=== PATIENT | male | born 1995 | race Caucasian/White ===

== ENCOUNTER 2020-09-10 11:27 | Emergency (ER) | payer OTHER ==
[2020-09-10 11:37] VITALS: BP 137/84
[2020-09-10] MEDS ORDERED: DOCUSATE SODIUM 100 MG CAPSULE RT_EAR ONE (12:32)
--- NOTE | 2020-09-10 12:40 | ER Document Report ---
ED ENT - General Chief Complaint: Ear Pain Stated Complaint: RIGHT EAR PAIN Time Seen by Provider: 09/10/20 12:19 - HPI Notes: 25-year-old presents to ED for evaluation of increased difficulty hearing out of his right ear. Patient states that it feels muffled and like he is underwater. He states that he has had an ear infection in the past many many years ago however this feels different from what he is experienced previously. He denies trauma or injury. He denies any fevers or chills. Denies sore throat or nasal congestion. Endorses no nausea or vomiting. Has not traveled recently. Denies any sick contacts. Denies any drainage from the ear. Patient does wear headphones that do well in his ears often throughout the course of the week. - Related Data Allergies/Adverse Reactions: No Known Allergies Allergy (Unverified 09/10/20 11:45) Past Medical History - Social History Smoking Status: Never Smoker Chew tobacco use (# tins/day): No Frequency of alcohol use: None Drug Abuse: None Family History: None Patient has homicidal ideation: No - Medical History Medical History: Negative Review of Systems - Review of Systems Notes: Constitutional: Negative for fever. HENT: Negative for sore throat. + for sound changes to right ear. Eyes: Negative for visual changes. Cardiovascular: Negative for chest pain. Respiratory: Negative for shortness of breath. Gastrointestinal: Negative for abdominal pain, vomiting or diarrhea. Genitourinary: Negative for dysuria. Musculoskeletal: Negative for back pain. Skin: Negative for rash. Neurological: Negative for headaches, weakness or numbness. 10 point ROS negative except as marked above and in HPI. Physical Exam - Vital signs Vitals: Temp Pulse Resp BP Pulse Ox 98.0 F 51 L 16 137/84 H 99 09/10/20 11:36 09/10/20 11:36 09/10/20 11:36 09/10/20 11:36 09/10/20 11:36 General: No acute distress. Alert and oriented x3. Sitting comfortably in a stretcher. Skin: No jaundice, pallor, petechiae, or rashes. Warm and dry. HEENT: Normocephalic, atraumatic. Pupils are equal round reactive to light and accommodation. Extraocular movements are intact. TM not visualized due to cerumen impaction. Left TM clear without erythema or bulging. Canals unremarkable. Nares patent without any discharge. Teeth in good condition. Pharynx without erythema, edema, or exudates. Mucous membranes moist. No tonsillar enlargement. Uvula is midline. Airway is patent. Neck: Supple with no lymphadenopathy. Full range of motion. Heart: Regular rate and rhythm. S1,S2. No murmurs, rubs, or gallops. Lungs: Clear to ausculation bilaterally. No wheezes, rhonchi, rales. Equal chest expansion. No retractions. Neuro: GCS 15. Moving all extremities without discomfort. Course - Re-evaluation Re-evalutation: 09/10/20 13:25 25-year-old male presents to ED for evaluation of ear pain for the last day. On physical exam, patient is found to have action to the right ear. This was successfully irrigated by nursing staff using Colace and hydrogen peroxide. Patient's ear is clear on reevaluation. No purulent drainage noted. No evidence of pharyngeal erythema or exudates. Patient advised to due debrox at home with continued use of ear phones. Patient instructed to follow-up with PCP in the next 2-3 days. Patient understands indications to return to the ER. Patient is agreeable with this plan. - Vital Signs Vital signs: Temp Pulse Resp BP Pulse Ox 98.0 F 51 L 16 137/84 H 99 09/10/20 11:36 09/10/20 11:36 09/10/20 11:36 09/10/20 11:36 09/10/20 11:36 - Laboratory Results Critical Laboratory Results Reviewed: No Critical Results - Radiology Results Critical Radiology Results Reviewed: No Critical Results Discharge - Discharge Clinical Impression: Impacted cerumen of right ear Condition: Stable Disposition: HOME, SELF-CARE Prescriptions: Carbamide Peroxide [Debrox 6.5 % Otic Drops 15 ml] 10 drop OT BID #1 bottle
== END 2020-09-10 12:50 | disposition home or self-care (01) ==
LOC: ER 11:27
DX: H61.21 Impacted cerumen, right ear (principal); H92.01 Otalgia, right ear
CPT/HCPCS: 99282